=== PATIENT | female | born 1940 | race Caucasian/White ===

== ENCOUNTER → 2017-12-30 09:51 | Outpatient (CLI) | payer BC ==
--- NOTE | ~2017-12-30 | EC ---
PATIENT:GENEVA JOVEL DATE OF SERVICE: 12/30/17 SEX: F MEDICAL RECORD: [id number] DATE OF : 38 LOCATION[facility] AGE OF PATIENT: 77 ADMISSION DATE: 12/30/17 REFERRING PHYSICIAN: INTERPRETING PHYSICIAN: TYSON MIGUEL MD ECHOCARDIOGRAM REPORT ECHO CHARGES 4 ECHO COMPLETE Date: 12/30 CLINICAL DIAGNOSIS: HTN/CAD/DIASTOLIC HEART FAILURE ECHOCARDIOGRAPHIC MEASUREMENTS (adult normal given) AC root (d.<3.7cm) 2.6 cm LV Septum d (<1.2 cm> 1.4 cm Valve Excursion 1.9 cm LV Septum (systole) 1.9 cm Left Atria (s.<4.0cm> 4.2 cm LVPW d(<1.2cm) 1.3 cm RV (d.<2.3cm) 3.1 cm LVPW (sytole) 2.0 cm LV diastole(<5.6CM) 5.7 cm MV E-F(>70mm/sec) cm LV systole 3.6 cm LVOT Diameter 2.0 cm MV exc.(>10mm) cm Est.ejection fraction (50-75%) % DOPPLER: LVIT cm/sec A 172 cm/sec E 79.0 cm/sec LA cm/sec RVSP 41.0 mmHg LVOT 105 cm/sec AOP1/2T m/s Asc. Ao 165 cm/sec RVOT 82.0 cm/sec RA cm/sec PA 108 cm/sec AV Gradient Peak 11.0 mmHg AV Mean 5.6 mmHg AV Area 2.0 cm MV Gradient Peak 12.0 mmHg MV Mean 3.9 mmHg MV Area cm COMMENTS: Medical Care Manager: Loren BARTONOE Photovoltaic Panel Installer: Darshan Miguel TAPE# PACS Pericardial Effusion N DATE OF SERVICE: PROCEDURE: Transthoracic echocardiogram. FINDINGS: 1. There is moderate concentric left ventricular hypertrophy. There is asynchronous wall motion due to bundle-branch block. There is mild lateral hypokinesis. Overall, ejection fraction is 40% to 45%. Inflow characteristics are consistent with diastolic dysfunction. 2. The left atrium is mildly dilated. ECHOCARDIOGRAM REPORT [id number] GENEVA JOVEL 3. The aortic valve is otherwise normal. 4. The mitral valve has mild mitral regurgitation with mild thickening. 5. The tricuspid valve has trace tricuspid regurgitation. 6. The pericardium is normal. 7. The right ventricle is mildly dilated. 8. The right atrium is normal. 9. The pulmonic valve is grossly normal. 10. The estimated pulmonary arterial pressure is 41 mmHg. CONCLUSION: The patient has evidence of hypertensive heart disease with some evidence of regional wall motion abnormalities, which may be due to the bundle-branch block versus ischemic heart disease. TRANSINT:[id number] Voice Confirmation ID: [id number] DOCUMENT ID: [id number] TYSON MIGUEL MD at 0741 CC: [id number] DICTATION DATE: 01/04/18 1053 BRAIDING MACHINE OPERATOR: 01/04/18 1227 DEP CLI 12/30/17 [id number] [place] [address]
== END | disposition home or self-care (01) ==
LOC: D.ECHO 09:51
DX: I50.30 Unspecified diastolic (congestive) heart failure (principal); I10 Essential (primary) hypertension; I25.10 Atherosclerotic heart disease of native coronary artery without angina pectoris

== ENCOUNTER → 2018-02-01 17:05 | Outpatient (CLI) | payer BC ==
[2018-02-01 19:29] LABS: ALBUMIN 3.4 g/dL (3.4-5.0); ANION GAP 12.4 mmol/L (8-16); BILIRUBIN - DIRECT 0.16 mg/dL (0.00-0.30); BILIRUBIN - INDIRECT 0.37 mg/dL (0.00-1.00); BILIRUBIN - TOTAL 0.53 mg/dL (0.2-1.3); CALCIUM 8.2 mg/dL (8.5-10.1); CARBON DIOXIDE 26.7 mmol/L (21.0-32.0); CHOL - HDL RATIO 3.1 ratio (2.3-4.1); CREATININE - SERUM 0.9 mg/dL (0.6-1.3); LDL-HDL RATIO 1.9 ratio (1.5-3.5); POTASSIUM - SERUM 4.1 mmol/L (3.5-5.1); PROTEIN - SERUM 6.2 g/dL (6.4-8.2)
== END | disposition home or self-care (01) ==
LOC: D.LABREF 17:05
PROVIDERS: Internal Medicine Cardiovascular Disease
DX: I25.10 Atherosclerotic heart disease of native coronary artery without angina pectoris (principal); I10 Essential (primary) hypertension